=== PATIENT | female | born 1955 | race Caucasian/White ===

== ENCOUNTER → 2019-12-31 | Outpatient (CLI) | payer OTHER ==
[~2019-12-31] VITALS: Ht 170.2 cm; Wt 68.0 kg
[~2019-12-31] MED LIST: ZESTRIL10 MG PO
--- NOTE | 2020-01-01 17:51 | P ---
[facility] [place] [address] PROCEDURE REPORT Name: REGINE SAMS Room #: REG FÁTIMA TrevinoDeannaJatinDeanna#: [id number] Admission: 12/31/19 Attend Phys: Kolton Garcia MD Discharge: Date of : 53 Report #: [id number] THIS REPORT FOR: cc: Niru Rodriguez MD, Lirio U. MD Thesing, John A. MD ~ CC: Kolton Rodriguez MD DATE OF SERVICE: 12/31/2019 OUTPATIENT COLONOSCOPY REPORT BRIEF HISTORY: The patient is a 64-year-old woman with family history of colon cancer in both parents. Father was diagnosed about 70. Mother at 67. PREOPERATIVE DIAGNOSIS: Family history of colon cancer. POSTOPERATIVE DIAGNOSIS: Family history of colon cancer with normal colonoscopy. MEDICATIONS: Deep sedation with propofol per Anesthesia. SPECIMEN: None. ESTIMATED BLOOD LOSS: None. PROCEDURE: Colonoscopy to cecum and terminal ileum. FINDINGS: Prior to propofol sedation, procedure of colonoscopy discussed with the patient as well as potential risks and its complications. She indicates she understands and desires to proceed. DESCRIPTION OF PROCEDURE: With the patient in left lateral decubitus position, digital examination was completed, which revealed no abnormalities. Subsequently, the Olympus video colonoscope was introduced into the rectum, advanced under direct vision to the cecum. This was done with minimal difficulty. The cecum was identified by the ileocecal valve and the appendiceal orifice. I was able to visualize the distal segment of terminal ileum, which was inspected and noted to be unremarkable. At that point, the scope was slowly withdrawn and careful circumferential views were obtained. Upon slow withdrawal of the scope, the prep was good. The mucosa was within normal limits, normal vascular pattern, normal light reflex. As we withdrew the scope, she was noted to have a normal endoscopic examination of the entire colon. No neoplastic lesions were seen. Diverticular disease was not seen. Scope was withdrawn in [address] [address] PROCEDURE REPORT Name: REGINE SAMS Room #: REG [facility].#: [id number] Admission: 12/31/19 Attend Phys: Kolton Garcia MD Discharge: Date of : 53 Report #: [id number] the rectum. No abnormalities were seen. Upon retroflexion, no abnormalities were seen. Scope was withdrawn. The patient tolerated the procedure well. CONDITION OF THE PATIENT UPON DISCHARGE: Following procedure, the patient was drowsy, arousable and conversant. She will be discharged home when fully ambulatory. INSTRUCTIONS TO THE PATIENT AND FAMILY AT THE TIME OF DISCHARGE: No neoplastic lesions were seen. Due to family history, I suggest followup colon exam in 5 years. Last colonoscopy was more than 5 years ago. Withdrawal time from the cecum was 14 minutes 14 seconds. <ELECTRONICALLY SIGNED> By: Kolton Garcia MD 01/01/20 1751 [id number] 08 Kolton Garcia MD /asia
== END | disposition home or self-care (01) ==
LOC: GI 12-17 09:20
DX: Z12.11 Encounter for screening for malignant neoplasm of colon (principal); I10 Essential (primary) hypertension; Z98.890 Other specified postprocedural states; Z79.899 Other long term (current) drug therapy; Z87.891 Personal history of nicotine dependence; Z80.0 Family history of malignant neoplasm of digestive organs; Z96.643 Presence of artificial hip joint, bilateral; Z88.8 Allergy status to other drugs, medicaments and biological substances
CPT/HCPCS: 62110; 62900